=== PATIENT | female | born 1980 | race Caucasian/White ===

== ENCOUNTER 2019-05-05 01:29 | Emergency (ER) | payer MEDICAID ==
[~2019-05-05] VITALS: Ht 162.6 cm; Wt 108.9 kg
[2019-05-05 01:35] VITALS: BP 114/72
[2019-05-05] MEDS ORDERED: LEVETIRACETAM500 MG ORAL (01:38)
[2019-05-05] MEDS ORDERED: QUETIAPINE FUM400 MG ORAL (01:38)
[2019-05-05] MEDS ORDERED: DEPAKOTE ER500 MG ORAL (01:38)
[2019-05-05] MEDS ORDERED: SERTRALINE HCL100 MG PO (01:38)
[2019-05-05] MEDS ORDERED: LORATADINE10 M2 PO (01:38)
[2019-05-05 03:30] VITALS: BP 123/79
--- NOTE | 2019-05-05 05:29 | Emergency Room Report ---
History of Present Illness General Chief Complaint: Multiple Trauma/Fall Source: Patient Present Illness HPI 39-year-old female status post mechanical trip and fall while walking. Patient reports she fell onto her right side and is complaining of pain on her right shoulder and right hip. Patient did not take any medications for pain control. Patient has no prior trauma similar to this. Patient denies hitting her head or having loss of consciousness. Patient states she has a history of seizures however did not sustain a seizure today. Initially she noted some dizziness however at this time she is not dizzy. Allergies: Coded Allergies: PENICILLINS (Verified Allergy, Unknown, 05/05/19) Nursing Documentation-[facility] Past Medical History: No History, Except For Hx Seizures: Yes Review of Systems Constitutional: Denies: chills, fever Respiratory: Denies: cough, shortness of breath Cardiovascular: Denies: chest pain, palpitations Gastrointestinal: Denies: diarrhea, vomiting Genitourinary: Denies: hematuria, pain Musculoskeletal: Reports: joint pain; Denies: joint swelling Skin: Denies: rash, lesions Neurological: Denies: headache, dizziness Physical Exam Vital Signs Date Time Temp Pulse Resp B/P (MAP) Pulse Ox O2 Delivery O2 Flow Rate FiO2 05/05/19 01:29 98.1 96 18 114/72 (86) 98 Room Air Sp02 EP Interpretation: reviewed General Appearance: well appearing, no apparent distress, non-toxic Head: normocephalic, atraumatic Eyes: bilateral eye normal inspection ENT: hearing grossly normal, EOM grossly intact, moist mucus membranes Neck: supple Respiratory: lungs clear, normal breath sounds, no respiratory distress, speaking full sentences Cardiovascular #1: regular rate, rhythm, normal capillary refill Cardiovascular #2: 2+ radial (R), 2+ radial (L) Gastrointestinal: soft, non-distended Rectal: deferred Musculoskeletal: moves extm spontaneously, no lower extremity edema, other - Tenderness to posterior right shoulder, full range of motion, no deformities, no open wounds, right hip tenderness on right buttocks, no deformity no open wounds, full range motion. Neurologic: grossly normal Psychiatric: mood/affect normal Skin: warm/dry, normal turgor, other - No wounds Medical Decision Making Diagnostic Impression: Primary Impression: Fall Additional Impressions: Right shoulder pain Right hip pain ER Course 39-year-old female status post fall. Known history of seizure disorder however no seizure at this time. Patient found to have right shoulder pain and right hip pain. X-rays performed noted to be within normal limits. Patient has no signs of acute fracture. Patient stable for outpatient follow-up and discharge. Given medication ibuprofen. Other X-Ray Diagnostic Results Other X-Ray Diagnostic Results : X-Ray ordered: Hip x-ray and shoulder x-ray Indication: Pain EP Interpretation: Yes PA Xray: Interpretation reviewed Interpretation: no dislocation, no soft tissue swelling, no fractures Impression: No acute disease Last Vital Signs Date Time Temp Pulse Resp B/P (MAP) Pulse Ox O2 Delivery O2 Flow Rate FiO2 05/05/19 03:30 98.1 88 18 123/79 98 Room Air Disposition: HOME, SELF-CARE Condition: Stable Referrals: NON PHYSICIAN (PCP) Orthopedic Urgent Care Patient Instructions: Fall Prevention in the Home, Hip Joint Effusion, Pediatric, Shoulder Pain Additional Instructions: Follow-up at orthopedic urgent care center in 2 to 3 days for reevaluation Shaquille Villanueva M.D. May 05, 2019 05:29
--- NOTE | 2019-05-05 05:56 | Diagnostic Imaging Report ---
EXAM: XR Right Shoulder Complete, 2 or More Views CLINICAL HISTORY: FALL TECHNIQUE: Two or more views of the right shoulder. COMPARISON: No relevant prior studies available. FINDINGS: Bones/joints: No acute fracture or dislocation. There are degenerative changes of the greater tuberosity and acromioclavicular joint. Soft tissues: There is calcific tendinopathy of the rotator cuff tendon. IMPRESSION: 1. No acute fracture or dislocation. 2. Degenerative changes with calcific tendinopathy of the rotator cuff tendon.
--- NOTE | 2019-05-05 06:12 | Diagnostic Imaging Report ---
EXAM: XR Right Hip With Pelvis When Performed, 1 View CLINICAL HISTORY: FALL TECHNIQUE: 2 views of the right hip and a frontal view of the pelvis. COMPARISON: No relevant prior studies available. FINDINGS: Bones/joints: No evidence of acute fracture. No dislocation. Mild degenerative changes of the both hip joints, right more than left, with mild joint space narrowing and subchondral sclerosis. Soft tissues: Unremarkable. IMPRESSION: No evidence of acute osseous abnormality.
[2019-05-05 06:30] VITALS: BP 126/86
[2019-05-06] MEDS ORDERED: NITROFURANTOIN100 M2 ORAL (14:04)
== END 2019-05-05 06:30 | disposition home or self-care (01) ==
LOC: EDBD 01:29 → EMR 01:57
DX: M25.511 Pain in right shoulder (principal); M25.551 Pain in right hip; W01.0XXA Fall on same level from slipping, tripping and stumbling without subsequent striking against object, initial encounter; Y92.9 Unspecified place or not applicable; Z88.0 Allergy status to penicillin; G40.909 Epilepsy, unspecified, not intractable, without status epilepticus
CPT/HCPCS: 73030; 73510; Z7502; 99284

== ENCOUNTER 2019-05-05 13:52 | Emergency (ER) | payer MEDICAID ==
[2019-05-05] VITALS (9 sets, daily range): BP systolic 102–119; BP diastolic 63–93
[~2019-05-05] VITALS: Ht 172.7 cm; Wt 99.8 kg
[~2019-05-05 13:52] MED LIST: DEPAKOTE ER500 MG ORAL; LEVETIRACETAM500 MG ORAL; LORATADINE10 M2 PO; QUETIAPINE FUM400 MG ORAL; SERTRALINE HCL100 MG PO
--- NOTE | 2019-05-05 13:52 | NUR ---
ED Nurse Note: NOTIFIED ER PROVIDER THAT PT STATES SHE IS SUICIDAL AND IS ON 5150 HOLD FOR DTS, SUICIDE PRECAUTIONS IN PLACE, CHARGE NURSE NOTIFIED, KATHLEEN PATEL AT THE BEDSIDE, PT BELONGINGS REMOVED FROM THE ROOM, PT CHANGED INTO GOWN.
--- NOTE | 2019-05-05 13:55 | NUR ---
ED Nurse Note: pt brought in by ANDRA and BAUDILIO c/c suicidal ideation, pt reports she has been feeling depressed for a while and taking medications for depression but no improvement, pt reports she is hearing voices which tells her to kill herself, pt reports she has hx suicidal attempts by OD on pills and chocking herself. pt states she has plan to kill herself via chocking, pt denies visual hallucinations at this time or thoughts of harming others. noted pt demonstrating anxiety such as hand tremors and shakiness in voice. will cont monitor. pt vss. resp even and unlabored on RA, AA&ox4, gcs=15, skin warm and dry, -n/v/d, ambulates w/ steady gait. suicide precautions in place, safety measures in place.
--- NOTE | 2019-05-05 14:25 | NUR ---
ED Nurse Note: pt's urine specimen obtained, pt ambulated to restroom with steady gait, noted urine brown color, ER provider notified.
[2019-05-05 14:30] LABS: APPEARANCE,URINE CLOUDY; BILIRUBIN, URINE 1+ (NEGATIVE); COLOR,URINE BROWN; GLUCOSE, URINE (UA) NEGATIVE (NEGATIVE); KETONES,URINE 1+ (NEGATIVE); LEUKOCYTE ESTERASE ,URINE 1+ (NEGATIVE); NITRITE,URINE NEGATIVE (NEGATIVE); PH,URINE 6.5 (4.5-8.0); PROTEIN,URINE 2+ (NEGATIVE); UROBILINOGEN,URINE 4 MG/DL (0.0-1.0)
[2019-05-05 14:31] LABS: BASOPHILS % (AUTO) 1.1 % (0.0-2.0); EOSINOPHILS % (AUTO) 0.1 % (0.0-3.0); HEMATOCRIT 44.9 % (37.0-47.0); HEMOGLOBIN 14.7 G/DL (12.0-16.0); MEAN CORPUSCULAR VOLUME 91 FL (80-99); MONOCYTES % (AUTO) 9.6 % (1.0-10.0); NEUTROPHILS % (AUTO) 51.1 % (45.0-75.0); PLATELET COUNT 248 K/UL (150-450); RED BLOOD COUNT 4.92 M/UL (4.20-5.40); RED CELL DISTRIBUTION WIDTH 12.9 % (11.6-14.8); WHITE BLOOD COUNT 8.2 K/UL (4.8-10.8)
[2019-05-05 14:37] LABS: ANION GAP 10 mmol/L (5-15); BLOOD UREA NITROGEN 14 mg/dL (7-18); CARBON DIOXIDE 24 MMOL/L (21-32); CHLORIDE 106 MMOL/L (98-107); CREATININE 0.7 MG/DL (0.55-1.30); POTASSIUM 4.4 MMOL/L (3.5-5.1); SODIUM 140 MMOL/L (136-145)
[2019-05-05 14:42] LABS: ALANINE AMINOTRANSFERASE 18 U/L (12-78); ALBUMIN 3.8 G/DL (3.4-5.0); ALBUMIN/GLOBULIN RATIO 0.9 (1.0-2.7); ALKALINE PHOSPHATASE 41 U/L (46-116); ASPARTATE AMINO TRANSFERASE 22 U/L (15-37); BILIRUBIN,TOTAL 0.4 MG/DL (0.2-1.0)
--- NOTE | 2019-05-05 14:47 | NUR ---
Pt's belongings in locker 2 along with suitcase in the utility room, medications in the medication safe box in the medroom, belongings list completed witnessed by 2 RN.
--- NOTE | 2019-05-05 14:52 | NUR ---
ED Nurse Note: LUNCH TRAY ORDERED FOR PT. EXTRA WARM BLANKET PROVIDED FOR COMFORT. Addendum: 05/05/19 at 1711 by RAVINDER ED Nurse Note: LUNCH TRAY ORDERED FOR PT. EXTRA WARM BLANKET PROVIDED FOR COMFORT. PT ADVISED TO NOTIFY STAFF IF NEEDED ASSIST OR NEEDS HELP, PT VERBALIZED UNDERSTANDING. WILL CONT MONITOR.
[2019-05-05] MEDS ORDERED: cefTRIAXone 1 GM in NS 55 ML IVPB ONE (15:15)
--- NOTE | 2019-05-05 15:50 | NUR ---
ED Nurse Note: pt resting in bed, no sx distress, continue to voice suicidal ideation, will cont monitor. vss. suicide precaution in place.
--- NOTE | 2019-05-05 16:45 | NUR ---
ED Nurse Note: pt ambulated to restroom, void x 1, pt denies pain at this time, vss, resp even and unlabored, will cont monitor.
--- NOTE | 2019-05-05 16:49 | Emergency Room Report ---
History of Present Illness General Chief Complaint: Behavioral Complaint Present Illness HPI 39-year-old female with history of bipolar disorder psychotic features currently taking Depakote, Zoloft, here endorsing suicidal ideation. Patient is brought in by paramedics and [employer] and is placed on a 5150 hold. Patient reports that the voices in her head have been telling her to hurt herself and hang herself and she has tried doing so few months ago. Patient reports that she contacted her psychiatrist earlier today however her psychiatrist told her that she needs to go to the emergency room as was unable to see the patient. Patient reports that she is compliant with taking all of her medication. Denies drug use, tobacco smoke, alcohol intake. Patient was here at [facility] earlier today due to fall and hip injury which was discharged. Patient denies any homicidal ideation, grandiosity, impulsivity, and other associated symptoms. Denies chest pain, abdominal pain, nausea vomiting, headache and dizziness Allergies: Coded Allergies: PENICILLINS (Verified Allergy, Unknown, 05/05/19) Patient History Past Medical History: see triage record Past Surgical History: unable to obtain Pertinent Family History: none Now: No Immunizations: UTD Reviewed Nursing Documentation: PMH: Agreed; PSxH: Agreed Nursing Documentation-PMH History Of Psychiatric Problem: Yes - bipolar shizophrenia Hx Seizures: Yes Review of Systems All Other Systems: negative except mentioned in HPI Physical Exam Vital Signs Date Time Temp Pulse Resp B/P (MAP) Pulse Ox O2 Delivery O2 Flow Rate FiO2 05/05/19 13:50 98.8 106 20 119/72 (88) 100 Room Air Sp02 EP Interpretation: reviewed, normal General Appearance: no apparent distress, alert, GCS 15, non-toxic Head: normocephalic, atraumatic Eyes: bilateral eye normal inspection, bilateral eye PERRL ENT: hearing grossly normal, normal pharynx, no angioedema, normal voice Neck: full range of motion, supple/symm/no masses Respiratory: chest non-tender, lungs clear, normal breath sounds, speaking full sentences Cardiovascular #1: regular rate, rhythm, no edema, no murmur Cardiovascular #2: 2+ radial (R), 2+ radial (L) Gastrointestinal: normal bowel sounds, non tender, soft, non-distended, no guarding, no rebound Rectal: deferred Genitourinary: normal inspection, no CVA tenderness Musculoskeletal: back normal, decreased range of motion, normal range of motion , digits/nails normal, inflammation Neurologic: alert, motor strength/tone normal, oriented x3, sensory intact, responsive, speech normal Psychiatric: depressed affect Suicide Risk Assessment: Suicidal Ideation: Yes Had intent to initiate attempt: Yes Pt's plan for suicide attempt: Yes Has means to complete attempt: Yes Skin: no rash Lymphatic: normal inspection, no adenopathy Medical Decision Making PA Attestation All my diagnosis and treatment plans were reviewed ad discussed with my supervising physician Dr. Rivas Diagnostic Impression: Primary Impression: Suicidal ideation ER Course 39-year-old female with history of bipolar disorder psychotic features currently taking Depakote, Zoloft, here endorsing suicidal ideation. Patient is brought in by paramedics and [employer] and is placed on a 5150 hold. Patient reports that the voices in her head have been telling her to hurt herself and hang herself and she has tried doing so few months ago. Patient reports that she contacted her psychiatrist earlier today however her psychiatrist told her that she needs to go to the emergency room as was unable to see the patient. Patient reports that she is compliant with taking all of her medication. Denies drug use, tobacco smoke, alcohol intake. Patient was here at [facility] earlier today due to fall and hip injury which was discharged. Patient denies any homicidal ideation, grandiosity, impulsivity, and other associated symptoms. Denies chest pain, abdominal pain, nausea vomiting, headache and dizziness Ddx considered but are not limited to: generalized anxiety disorder, panic attack, depression with psycotic featurs, bipolar disorder, drug overdose Vital signs: are WNL, pt. is afebrile H&PE are most consistent with: Suicidal ideation, UTI incidental finding and was treated at [facility] today via IV antibiotics ORDERS: Psychiatric order set, ED INTERVENTIONS: NS bolus, Rocephin Patient is medically cleared Patient is medically cleared to be transferred to an inpatient psychiatric facility with diagnosis of SI under supervision of Dr.: Rivas pt stable at time of transfer Last Vital Signs Date Time Temp Pulse Resp B/P (MAP) Pulse Ox O2 Delivery O2 Flow Rate FiO2 05/05/19 14:10 98.8 106 20 119/72 100 Room Air Disposition: XFER TO PSYCH HOSP/UNIT Condition: Stable Referrals: NOT CHOSEN IPA/MD,REFERRING (PCP) Alicia Child May 05, 2019 16:49
--- NOTE | 2019-05-05 17:30 | NUR ---
ED Nurse Note: pt resting at this time, will cont monitor.
--- NOTE | 2019-05-05 18:21 | NUR ---
ED Nurse Note: pt ambulated to restroom, void x 1, pt provided w/ extra warm blanket, pt given dinner tray, pt vss, advised to notify staff if need assist, pt states she is comfortable at this time, no sx distress noted, will cont monitor.
--- NOTE | 2019-05-05 19:05 | NUR ---
HAND-OFF: Report given to JOSE CARLOS AVILA and endorsed care. pt is resting in bed, no sx distress, safety measures/ suicide precautions in place.
--- NOTE | 2019-05-05 19:06 | NUR ---
ED Nurse Note: Received report from Earl BRANCH. Pt seen alert and oriented. Behaving appropriately. Addendum: 05/05/19 at 1941 by PEPITO ED Nurse Note: Sitter at bedside.
--- NOTE | 2019-05-05 19:15 | NUR ---
ED Nurse Note: Pt walked to the restroom with the steady gait.
--- NOTE | 2019-05-05 19:35 | NUR ---
ED Nurse Note: Patient was moved from Ortho to OB room. Pt able to walk with steady gait. Pt asked for food. Snacks provided.
--- NOTE | 2019-05-05 21:33 | NUR ---
ED Nurse Note: Patient seen in bed. Alert and oriented, verbally responsive. No SI/HI at this time. VSS.
--- NOTE | 2019-05-05 23:08 | NUR ---
ED Nurse Note: Pt able to walk to the restroom. Accompanied by a sitter.
[2019-05-06] VITALS (12 sets, daily range): BP systolic 109–127; BP diastolic 68–84
--- NOTE | 2019-05-06 00:10 | NUR ---
ED Nurse Note: Pt seen sleeping in bed. No SOB. VSS. Will cont to monitor.
--- NOTE | 2019-05-06 01:10 | NUR ---
ED Nurse Note: Pt seen resting in bed. Will cont to monitor.
--- NOTE | 2019-05-06 02:06 | NUR ---
ED Nurse Note: Pt requested for food. Snack provided.
--- NOTE | 2019-05-06 03:20 | NUR ---
ED Nurse Note: Pt seen sleeping in bed. Sitter at bedside. Will cont to monitor.
--- NOTE | 2019-05-06 04:22 | NUR ---
ED Nurse Note: Pt seen sleeping quietly in bed. Breathing even and unlabored. Sitter at bedside. Will cont to monitor.
--- NOTE | 2019-05-06 05:36 | NUR ---
ED Nurse Note: Pt sleeping in bed. VSS. Sitter at bedside. Will continue to monitor.
--- NOTE | 2019-05-06 06:07 | NUR ---
ED Nurse Note: Pt walked to the restroom. Accompanied by a sitter.
--- NOTE | 2019-05-06 07:00 | NUR ---
ED Nurse Note: Pt walked to the restroom. Alert and oriented, follows command. Accompanied by a sitter.
--- NOTE | 2019-05-06 07:23 | NUR ---
HAND-OFF: Report given to Angeles BRANCH and endorsed plan of care.
--- NOTE | 2019-05-06 07:29 | NUR ---
HAND-OFF: Report given to JOSE CARLOS Travis.
--- NOTE | 2019-05-06 07:30 | NUR ---
ED Nurse Note: Received report from JOSE CARLOS Reynoso. patient in no distess at this time. patient was ordered breakfast tray. will continue to monitor
--- NOTE | 2019-05-06 08:00 | NUR ---
ED Nurse Note: Sitter request made to nursing quality assurance supervisor.
--- NOTE | 2019-05-06 09:40 | NUR ---
ED Nurse Note: patient ambulated to the restroom, was given meds as ordered. will continue to closely monitor
--- NOTE | 2019-05-06 11:11 | NUR ---
HAND-OFF: Report given to JOSE CARLOS Bowman.
--- NOTE | 2019-05-06 12:00 | NUR ---
ED Nurse Note: wing Neal at bedside. Patient resting in bed.
--- NOTE | 2019-05-06 12:21 | NUR ---
ED Nurse Note:pt. is in the room, sitter at the bed side
[2019-05-06] MEDS ORDERED: NITROFURANTOIN100 M2 ORAL (14:04)
--- NOTE | 2019-05-06 14:51 | NUR ---
ED Nurse Note:pt. was picked up by ambulance- all personal belongings returned to her, she was picked up by ambulance for transfer to psych
== END 2019-05-06 14:50 ==
LOC: EDBD 13:52 → EMR 14:59
DX: R45.851 Suicidal ideations (principal); G40.909 Epilepsy, unspecified, not intractable, without status epilepticus; Z88.0 Allergy status to penicillin; F31.9 Bipolar disorder, unspecified; F20.9 Schizophrenia, unspecified
CPT/HCPCS: 36415; 80053; 80299; 80307; 81003; 81025; 85025; 87086; 96361; 96365; G0480; G0481; J0696; Z7502; 99285